=== PATIENT | male | born 1960 | race Caucasian/White ===

== ENCOUNTER 2018-11-07 15:10 | Emergency (ER) | payer BC ==
[2018-11-07] MEDS ORDERED: Naproxen 500 MG TAB ONE (15:45)
--- NOTE | 2018-11-07 15:47 | RAD ---
EXAM: XR Ankle Rt 3 View STANDARD PROVIDED CLINICAL HISTORY: Injury COMPARISON: None FINDINGS: The lateral view is suboptimally positioned, limiting evaluation. There is irregular lucency involvin g the posterior aspect of the calcaneus suspicious for calcaneal fracture. Bimalleolar soft tissue swelling without additional fracture evident. IMPRESSION: Limited study due to positioning on the lateral view. Comminuted intra-articular calcaneal fracture. Consider CT.
== END 2018-11-07 16:49 | disposition home or self-care (01) ==
LOC: ERS 15:10
DX: S92.061A Displaced intraarticular fracture of right calcaneus, initial encounter for closed fracture (principal); I10 Essential (primary) hypertension; F41.9 Anxiety disorder, unspecified; F17.220 Nicotine dependence, chewing tobacco, uncomplicated; Z79.899 Other long term (current) drug therapy; W17.89XA Other fall from one level to another, initial encounter
CPT/HCPCS: 28400